=== PATIENT | female | born 1950 | race Hispanic/Latino ===

== ENCOUNTER 2017-06-21 01:20 | Observation (INO) | payer MEDICARE ==
[2017-06-21] MEDS ORDERED: Nitroglycerin 0.4 MG TAB (25 Tab Bottle) ONE ×2 (02:03→02:04)
[2017-06-21 02:05] LABS: #Eosinphils 0.2 thou/uL (0.0-0.7); #Lymphocytes 2.5 thou/uL (1.20-3.40); #Monocytes 0.9 thou/uL (0.11-0.59); #Neutrophils 4.5 thou/uL (1.40-6.50); %Basophils 0.4 % (0.0-1.0); %Eosinophils 2.2 % (0.0-10.0); %Lymphocytes 30.9 % (21.0-51.0); %Monocytes 10.6 % (0.0-10.0); Hematocrit 42.7 % (36.0-47.0); Mean Platelet Volume 6.9 fL (7.4-10.4); Red Blood Cell (RBC) Count 4.54 mill/uL (4.20-5.40); White Blood Cell (WBC) Count 8.1 thou/uL (4.8-10.8)
[2017-06-21 02:25] LABS: ALT (SGPT) 16 U/L (8-55); AST (SGOT) 19 U/L (5-34); Alkaline Phosphatase 74 U/L (40-150); Anion Gap 11 mmol/L (10-20); BUN (Urea Nitrogen) 18 mg/dL (9.8-20.1); Bilirubin, Total 0.3 mg/dL (0.2-1.2); Calc. Creatinine Clearance 0 mL/min (70-130); Calcium 9.8 mg/dL (7.8-10.44); Carbon Dioxide 26 mmol/L (23-31); Chloride 107 mmol/L (98-107); Estimated GFR-MDRD 74; Globulin 3.6 g/dL (2.4-3.5); Protein, Total 7.6 g/dL (6.0-8.3)
[2017-06-21 02:29] LABS: Troponin I Less than 0.010 ng/mL (< 0.028)
[2017-06-21] MEDS ORDERED: Guaifenesin DM 100-10/5 ML UDCUP PO PRN (03:12)
[2017-06-21] MEDS ORDERED: Acetaminophen 325 MG TAB PO PRN (03:12)
[2017-06-21] MEDS ORDERED: Sodium Chloride 0.9% 1,000 ML IV SCH (03:15)
[2017-06-21 04:13] VITALS: BMI 22.6
--- NOTE | 2017-06-21 04:53 | HP ---
REASON FOR ADMISSION: Chest pain. HISTORY OF PRESENT ILLNESS: The patient gives history of chest pain, which started late yesterday evening. This is left-sided with radiation to left upper extremity. The pain is worse on deep palpation. No complaints of fever, but has some dry cough. No complaints of muscular aches or pain. No complaints of palpitations, PND or orthopnea. No prior cardiac workup. PAST MEDICAL AND SURGICAL HISTORY: History of x3, right breast lumpectomy, back pain. CURRENT MEDICATIONS: Aspirin 81 mg p.o. daily, and p.r.n. Flexeril. ALLERGIES: PENICILLIN. PERSONAL HISTORY: Does not abuse alcohol or drugs. No history of smoking. FAMILY HISTORY: Mother has had history of cirrhosis. Father at the age of 90 years from old age. REVIEW OF SYSTEMS: The following complete review of systems was negative, unless otherwise mentioned in the HPI or below: Constitutional: Weight loss or gain, ability to conduct usual activities. Skin: Rash, itching. Eyes: Double vision, pain. ENT/Mouth: Nose bleeding, neck stiffness, pain, tenderness. Cardiovascular: Palpitations, dyspnea on exertion, orthopnea. Respiratory: Shortness of breath, wheezing, cough, hemoptysis, fever or night sweats. Gastrointestinal: Poor appetite, abdominal pain, heartburn, nausea, vomiting, constipation, or diarrhea. Genitourinary: Urgency, frequency, dysuria, nocturia. Musculoskeletal: Pain, swelling. Neurologic/Psychiatric: Anxiety, depression. Allergy/Immunologic: Skin rash, bleeding tendency. PHYSICAL EXAMINATION: GENERAL: The patient is a 66-year-old female who is currently not in any pain. VITAL SIGNS: Blood pressure 160/76 on arrival, pulse 76 per minute, respiratory rate 20 per minute, temperature 97.6 degrees Fahrenheit, saturating 99% on room air. NECK: Supple, no elevated JVD. HEENT: Eyes, extraocular muscles intact. Pupils reacting to light. Oral cavity mucous membranes are moist. No exudates or congestion. CARDIOVASCULAR SYSTEM: S1, S2 heard. Regular rhythm. RESPIRATORY: Air entry 2+ bilateral. No rales or rhonchi. ABDOMEN: Soft, bowel sounds heard. No tenderness, rigidity or guarding. EXTREMITIES: No peripheral edema or calf tenderness. VASCULAR SYSTEM: Peripheral pulses 2+ bilateral, no ischemic ulcerations or gangrene. CENTRAL NERVOUS SYSTEM: No gross focal deficits seen. Patient is alert, awake , oriented x3. PSYCHIATRIC: The patient's mood is euthymic. No hallucinations or delusions. LABORATORY AND X-RAY FINDINGS: White count of 8, H and H 14 and 42, platelet count is 371, MCV is 93 with 55% neutrophils. Electrolytes are stable. BUN 18 , creatinine 0.7, glucose 105. Liver enzymes are within normal limits. Cardiac enzymes x1 is negative. Albumin is 4.0. Chest x-ray by my review shows no acute cardiopulmonary abnormalities. EKG by my review shows normal sinus rhythm at 72 beats per minute. CLINICAL IMPRESSION AND PLAN: The patient will be under observation on telemetry for chest pain, rule out acute coronary syndrome. We will follow acute coronary syndrome evidence based protocol. Two more sets of troponin and the nuclear stress test. We will also obtain lipid profile. She will be on Pepcid 20 mg twice daily along with aspirin 325 mg p.o. daily. We will continue to closely monitor her on telemetry. TALAD
[2017-06-21 06:03] LABS: Troponin I Less than 0.010 ng/mL (< 0.028)
--- NOTE | 2017-06-21 08:39 | RAD ---
PA AND LATERAL CHEST: Date: 06-21-17 History: Chest pain for three days. Comparison: None. FINDINGS: Cardiac silhouette and pulmonary vasculature are within normal limits. Linear densities are seen in the region of the lingula which may be related to atelectasis or scarring. Lungs are otherwise clear . Osseous structures are intact. IMPRESSION: 1. No acute cardiopulmonary process. 2. Linear scarring versus atelectasis in the region of the lingula. POS: [facility]
[2017-06-21] MEDS ORDERED: Famotidine 20 MG TAB PO SCH (09:00)
[2017-06-21] MEDS ORDERED: Enoxaparin Sodium 40 MG/0.4 ML SYRINGE SC SCH (09:00)
[2017-06-21] MEDS ORDERED: Aspirin 325 MG TAB PO SCH (09:00)
[2017-06-21] MEDS: Nitroglycerin 0.4 MG TAB (25 Tab Bottle) PO PRN ×2 (11:06→11:13)
[2017-06-21 11:35] VITALS: BP 106/57; TEMP 98
[2017-06-21 11:42] LABS: Troponin I Less than 0.010 ng/mL (< 0.028)
[2017-06-21] MEDS ORDERED: Metoclopramide HCl 10 MG TAB PO PRN (11:52)
[2017-06-21] MEDS ORDERED: Naproxen 500 MG TAB PO SCH (12:00)
[2017-06-21] MEDS ORDERED: ADENOSINE 60 MG/20 ML VIAL ONE (12:00)
--- NOTE | 2017-06-21 12:22 | DIS ---
DATE OF ADMISSION: 06/21/2017 DATE OF DISCHARGE: 06/21/2017 City call admission for Mayela. PRIMARY CARE PROVIDER: 06/21/2017 DISCHARGE DISPOSITION: Home. FINAL DIAGNOSES: Costochondritis, chest pain, hypertension. DISCHARGE MEDICATIONS: Metoclopramide 10 mg p.o. q.8 hours p.r.n., folic acid 1 mg a day, cyclobenz aprine 10 mg q.8 hours p.r.n., Naprosyn 500 mg p.o. b.i.d. for 10 days. ALLERGIES: Allergic to PENICILLINS. PENDING AT THE TIME OF DISCHARGE: Nothing. CODE STATUS: FULL. HOSPITAL COURSE: Patient admitted with atypical chest pain. On examination today, she was found to have a very tender spot around T5 anterior costochondral junc tion on the left reproduced her chest pain. She already had a cardiac stress test which shows no ev idence of ischemia. The D-dimer has been done, which is normal. Her basic comp metabolic profile w as normal. Cardiac enzymes were normal x3. CBC was normal. I have discussed this with the patient at length twice over the gis specialist phone, she is very happy not to have had any heart problems. S he is ready to go home. She does have a doctor, was not able to spell the name for me. She has agr eed to see that physician in 1 week. No consultations were obtained. No procedures were obtained.
--- NOTE | 2017-06-21 13:44 | NM ---
MYOCARDIAL PERFUSION EVALUATION: INDICATION: Chest pain. RADIOPHARMACEUTICAL: 32 mCi Technetium 99m sestamibi IV with stress and 11 mCi Technetium 99m sestamibi IV with rest. COMPARISON: None. FINDINGS: No reversible myocardial perfusion defect is evident. There is a mild-sized region of mild reduced activity involving the basal aspect of the inferior wall left ventricle on both the rest and stress images likely related to some diaphragmatic attenuation. The estimated LVEF is 83%. There is kristofer l wall motion and thickening. IMPRESSION: Probably normal myocardial perfusion evaluation. 1. No scintigraphic evidence of reversible myocardial ischemia. 2. Mild-sized region of mild reduced activity involving the basal aspect of the left ventricular in ferior wall likely related to diaphragmatic attenuation. 3. Estimated left ventricular ejection fraction of 83%. POS: [facility]
[2017-06-22] MEDS ORDERED: Folic Acid 1 MG TAB PO SCH (09:00)
--- NOTE | 2017-06-23 06:27 | EKG ---
Test Reason : C/O CHEST PAIN Blood Pressure : / mmHG Vent. Rate : 066 BPM Atrial Rate : 066 BPM P-R Int : 184 ms QRS Dur : 070 ms QT Int : 392 ms P-R-T Axes : 050 020 047 degrees QTc Int : 410 ms Normal sinus rhythm Normal ECG When compared with ECG of 21-JUN-2017 01:27, (Unconfirmed) No significant change was found Confirmed by NALDO MILLER ([id number]) on 06/23/2017 6:27:21 AM Referred By: GEORGIE Confirmed By:NALDO MILLER
== END 2017-06-21 12:38 | disposition home or self-care (01) ==
LOC: ERS 01:20 → 2SW 02:51
PROVIDERS: ADMIT Internal Medicine; ATTEND Internal Medicine
DX: M94.0 Chondrocostal junction syndrome [Tietze] (principal); I10 Essential (primary) hypertension; Z88.0 Allergy status to penicillin; Z79.82 Long term (current) use of aspirin; Z79.899 Other long term (current) drug therapy; Z98.891 History of uterine scar from previous surgery
CPT/HCPCS: 71020; 78452; 80053; 80061; 82553; 84484 ×2; 85025; 85379; 93005; 93017; 94760; 96360; 96361; 96372; 99285; A9500; 36415; 93010; J0153; J1650